=== PATIENT | female | born 1960 | race Hispanic/Latino ===

== ENCOUNTER 2019-08-24 20:03 | Emergency (ER) | payer OTHER ==
[2019-08-24] MEDS ORDERED: CEPHALEXIN 500 MG CAPSULE ONE (20:33)
[2019-08-24] MEDS ORDERED: IBUPROFEN 600 MG TABLET ONE (20:33)
== END 2019-08-24 22:21 | disposition home or self-care (01) ==
LOC: EDH 20:03
DX: L03.811 Cellulitis of head [any part, except face] (principal); K12.2 Cellulitis and abscess of mouth; I10 Essential (primary) hypertension; Z98.890 Other specified postprocedural states